=== PATIENT | male | born 1960 | race Caucasian/White ===

== ENCOUNTER → 2017-12-26 | Outpatient (CLI) | payer BC ==
--- NOTE | 2017-12-26 22:33 | CT ---
EXAMINATION TYPE: CT renal stones wo con DATE OF EXAM: 12/26/2017 COMPARISON: NONE HISTORY: 57-year-old male complains of RLQ pain. TECHNIQUE: Contiguous axial scanning of the abdomen and pelvis without IV contrast. Coronal and sagit marcela reconstructions performed. CT DLP: 992.7 mGycm Automated exposure control for dose reduction was used. FINDINGS: Heart is normal size without pericardial effusion. Strandy atelectasis inferior lingula. No pleural e ffusion. Liver enlarged measuring 22.5 cm, probably secondary to a right. Density does not suggest fatty infil tration. Gallbladder, adrenal glands kidneys, spleen, and pancreas show no modality by noncontrast CT. Scattered nonenlarged and mildly enlarged mesenteric lymph nodes are present measuring up to 1.2 cm, coronal image 51. No dilated small bowel, free fluid, or free air. There is moderate stool burden. There is abnormal inflammatory change in the right lower quadrant which seems to be centered along th e cecum where there is abnormal wall thickening as well. Tracking edema is present and there is focal wall thickening of the wall of the mid sigmoid colon as it courses along abuts the cecum, axial imag e 123. The appendix is not well seen but there are low-density rounded lesions, one along each flyer maker al iliac chain measuring 3.4 cm on the right. 3.5 cm on the left. Prominent inguinal lymph nodes tao ure up to 1.3 cm on the right but are not enlarged by strict CT size criteria. Prostate gland may be surgically absent inflammatory changes extend to abut the anterior wall of the bladder dome where the re may be wall thickening. No pelvic free fluid. Patulous right inguinal canal. Bones: Mild degenerative changes of the hips and lower lumbar spine. No osseous destructive process. IMPRESSION: 1. EXTENSIVE INFLAMMATORY CHANGES IN THE RIGHT LOWER QUADRANT WITH ABNORMAL WALL THICKENING OF THE CE CUM. THE APPENDIX IS NOT DISCRETELY SEEN. DIFFERENTIAL CONSIDERATIONS INCLUDE INFLAMMATORY COLON CANC ER INCLUDING MUCINOUS CYSTADENOCARCINOMA OF THE APPENDIX AND SEQUELA OF A SUBACUTE RUPTURED ACUTE EDMOND ENDICITIS. FURTHER CLINICAL CORRELATION AND WORKUP IS RECOMMENDED. 2. INFLAMMATION EXTENDS TO THE WALL OF THE MID SIGMOID COLON WHICH COURSES JUST ADJACENT AND ALSO TO THE ANTERIOR BLADDER DOME. WALL THICKENING OF THESE STRUCTURES MAY BE REACTIVE. 3. NONENLARGED AND MILDLY ENLARGED MESENTERIC LYMPH NODES MEASURE UP TO 1.2 CM. 4. PROSTATE GLAND IS NOT SEEN AND MAY BE SURGICALLY ABSENT. THERE IS A ROUND LOW-DENSITY LESION ALONG EACH PELVIC SIDEWALL MEASURING UP TO 3.5 CM. IF THERE WAS PRIOR PROSTATECTOMY AND LYMPH NODE DISSECT ION, LYMPHOCELES ARE POSSIBLE. OTHERWISE, ABNORMAL LYMPHADENOPATHY IS A CONSIDERATION. 5. NO NEPHROLITHIASIS OR HYDRONEPHROSIS.
== END | disposition home or self-care (01) ==
LOC: RADCTMAIN 18:21
PROVIDERS: ATTEND Family Medicine
DX: R10.2 Pelvic and perineal pain (principal); Z90.79 Acquired absence of other genital organ(s)
CPT/HCPCS: 74150

== ENCOUNTER 2018-01-16 09:49 | Day surgery (SDC) | payer BC ==
[2018-01-12 11:24] VITALS: BMI 31.8
[~2018-01-16 09:49] MED LIST: LACTATED RINGERS 1,000 ML IV SCH
[2018-01-16] MEDS ORDERED: LACTATED RINGERS 1,000 ML IV ONE (10:01)
[2018-01-16 10:02] VITALS: RESP 18; TEMP 98
[2018-01-16] MEDS ORDERED: LIDOCAINE 1% 20 ML VIAL (10MG/ML) FOR IV START INTRADERMA ONE (10:02)
[2018-01-16] MEDS ORDERED: MIDAZOLAM 2 MG/2 ML VIAL ONE (11:00)
[2018-01-16] MEDS ORDERED: LIDOCAINE 1% INJ 10MG/ML (20 ML MDV) ONE (11:00)
[2018-01-16] MEDS ORDERED: PROPOFOL 10 MG/ML 20 ML VIAL IV ONE (11:00)
[2018-01-16 11:51] VITALS: BP 113/79; PULSE 67
--- NOTE | 2018-01-16 12:18 | P.PCN ---
Date of Procedure: 01/16/18 Procedure(s) Performed: Procedure: Total colonoscopy and biopsy. Preoperative diagnosis: Screening for neoplasia. Postoperative diagnosis: 1. Aphthous ulcerations in the distal terminal ileum biopsies. 2. Localized inflammation in the cecum to the area of the appendiceal orifice and the immediate vicinity. 3. Rest of the exam of the colon within normal limits with the only finding of a diminutive polyp in the rectum. 4. Biopsies obtained from the terminal ileum, cecum, and the rectal polyp. Preparation: HalfLytely prep. Sedation: Was provided by anesthesia. Brief clinical history: The patient is a 58-year-old male who is scheduled for this evaluation for screening for neoplasia. The patient had a prior colonoscopy around age 51. He has been experiencing abdominal pain and constipation over the last [address] A [address] of the abdomen done December 26 showed extensive inflammatory changes in the right lower quadrant with thickening of the wall of the cecum. The radiologist raised the possibility of subacute appendicitis or prior ruptured appendicitis. The patient gives history of appendectomy as a child. Procedure: With the patient on his left lateral decubitus position and after informed consent and adequate sedation, the perianal area was inspected and it did not show any fissures or fistulas. There were no masses felt on digital rectal examination. The Olympus CFQ 160L video colonoscope was then inserted in the rectum in the usual fashion and advanced to the cecum. I intubated the ileocecal valve and examined the terminal ileum. There were few scattered aphthous ulcerations in the terminal ileum but no large serpiginous ulcers or strictures. The mucosa otherwise appeared healthy. I obtained biopsies from the terminal ileum. The cecum showed inflammation involving the appendiceal orifice and the immediate vicinity. That area showed edema, erythema and exudation. There was no spontaneous bleeding. The rest of the cecum and the colon appeared healthy with no other evidence of inflammation. In the rectum there was a diminutive polyp, probably representing hyperplastic polyp, which I biopsied. I retroflexed the endoscope in the rectum before the endoscope was withdrawn. The patient tolerated the procedure well. Plan: The patient was reassured. Will await biopsy results and make further plans. I anticipate repeating his colonoscopy in 5 years.
== END 2018-01-16 12:24 | disposition home or self-care (01) ==
LOC: ORWHC2ENDO 09:49
DX: Z12.11 Encounter for screening for malignant neoplasm of colon (principal); D12.8 Benign neoplasm of rectum; K63.3 Ulcer of intestine; E78.5 Hyperlipidemia, unspecified; K21.9 Gastro-esophageal reflux disease without esophagitis; Z85.46 Personal history of malignant neoplasm of prostate; Z79.899 Other long term (current) drug therapy
CPT/HCPCS: 88305; 45380; J2250; J2001; J2704

== ENCOUNTER → 2020-01-17 | Outpatient (CLI) | payer BC ==
--- NOTE | 2020-01-17 11:35 | XR ---
EXAMINATION TYPE: XR pelvis AP view DATE OF EXAM: 01/17/2020 CLINICAL HISTORY: pain TECHNIQUE: Single view the pelvis is submitted. FINDINGS: No evidence for fracture, dislocation or bony lesion. Joint spaces are well-preserved. S I joints appear symmetric. IMPRESSION: 1. No acute fracture or dislocation seen. ICD 10 NO FRACTURE, INITIAL EVALUATION
== END | disposition home or self-care (01) ==
LOC: RADXRMAIN 10:59
PROVIDERS: ATTEND Family Medicine
DX: R10.30 Lower abdominal pain, unspecified (principal)
CPT/HCPCS: 72170

== ENCOUNTER → 2021-04-22 | Outpatient (CLI) | payer BC ==
--- NOTE | 2021-04-22 11:05 | XR ---
EXAMINATION TYPE: XR chest 2V DATE OF EXAM: 04/22/2021 COMPARISON: NONE HISTORY: History of asbestos exposure with shortness of breath TECHNIQUE: Frontal and lateral views of the chest are obtained. FINDINGS: There is no suspicious peripheral focal air space opacity, pleural effusion, or pneumothor ax seen. The cardiac silhouette size is within normal limits. The osseous structures are intact. IMPRESSION: No acute process.
== END | disposition home or self-care (01) ==
LOC: RADXRMAIN 10:46
PROVIDERS: ATTEND Family Medicine
DX: R06.02 Shortness of breath (principal); Z77.090 Contact with and (suspected) exposure to asbestos
CPT/HCPCS: 71046